=== PATIENT | male | born 1980 | race Caucasian/White ===

== ENCOUNTER 2018-09-28 11:54 | Emergency (ER) | payer OTHER ==
[~2018-09-28] VITALS: Ht 175.3 cm; Wt 93.0 kg
--- NOTE | 2018-09-28 12:09 | NUR ---
EKG COMPLETED AND EDMD SIGNED. PT STATES "I DON'T WANT TO STAY. I'M JUST GOING TO CALL MY [employer] HELPER, DR. KEY." PT EDUCATED REGARDING ALL RISKS OF LEAVING AMA, INCLUDING FATALITY. PT VERBALIZED UNDERSTANDING. PT LEFT WITH ALL PERSONAL BELONGINGS.
== END 2018-09-28 12:12 | disposition left against medical advice (07) ==
LOC: ED 12:06
DX: R07.9 Chest pain, unspecified (principal)
CPT/HCPCS: 93005; 99281